=== PATIENT | female | born 1985 | race American Indian/Alaskan Native ===

== ENCOUNTER 2017-12-28 00:58 | Emergency (ER) | payer OTHER ==
[2017-12-28] MEDS ORDERED: FUL-GLO OP ONE (04:47)
[2017-12-28] MEDS ORDERED: TETRACAINE 0.5% OU ONE (04:47)
[2017-12-28] MEDS ORDERED: BSS OU ONE (04:52)
[2017-12-28] MEDS ORDERED: PERCOCET 5/325 PO ONE (05:04)
--- NOTE | 2017-12-28 05:10 | Emergency Department Report ---
ED Eye Problem HPI - General Chief complaint: Eye Problems Stated complaint: RT EYE PAIN Time Seen by Provider: 12/28/17 05:03 Source: patient Mode of arrival: Ambulatory Limitations: No Limitations - History of Present Illness Initial comments: 32-year-old -Mal[place] female wears contacts comes in to the ER complaining of right eye redness with clear drainage and pain. Patient denies anything getting into her eye she denies any eye trauma. Patient admits to photophobia clear drainage. Patient has a past medical history diabetes. She currently takes no medications she has an allergy to penicillin. MD chief complaint: eye pain, eye redness - Related Data Previous Rx's Medication Instructions Recorded Last Taken Type Ibuprofen [Motrin 800 MG tab] 800 mg PO Q8HR PRN #30 tablet 12/28/17 Unknown Rx Levofloxacin [levofloxacin OPTH] 1 - 2 drop OP Q2HWA #1 bottle 12/28/17 Unknown Rx Allergies Allergy/AdvReac Type Severity Reaction Status Date / Time Penicillins Allergy Rash Verified 12/28/17 04:46 ED Review of Systems ROS: Stated complaint: RT EYE PAIN Other details as noted in HPI Eyes: eye pain, eye discharge (clear) ED Past Medical Hx - Past Medical History Previous Medical History?: Yes Hx Diabetes: Yes - Surgical History Past Surgical History?: Yes Additional Surgical History: . breast reduction - Social History Smoking Status: Never Smoker Substance Use Type: Alcohol - Medications Home Medications: Home Medications Medication Instructions Recorded Confirmed Last Taken Type Ibuprofen [Motrin 800 MG tab] 800 mg PO Q8HR PRN #30 tablet 12/28/17 Unknown Rx Levofloxacin [levofloxacin OPTH] 1 - 2 drop OP Q2HWA #1 bottle 12/28/17 Unknown Rx ED Physical Exam - General Limitations: No Limitations General appearance: alert, in no apparent distress - Head Head exam: Present: atraumatic, normocephalic - Eye Eye exam: Present: normal appearance - Expanded Eye Exam Expanded Eyelids: Normal Inspection: Right Pupils: Regular, Round: Bilateral (flourscein uptake approximately 5 PM.) Sclera/Conjunctival: Normal Inspection: Left Anterior chamber: Normal Inspection: Left - ENT ENT exam: Present: mucous membranes moist - Neck Neck exam: Present: normal inspection - Respiratory Respiratory exam: Present: normal lung sounds bilaterally. Absent: respiratory distress - Cardiovascular Cardiovascular Exam: Present: regular rate, normal rhythm. Absent: systolic murmur, diastolic murmur, rubs, gallop - GI/Abdominal GI/Abdominal exam: Present: soft, normal bowel sounds - Extremities Exam Extremities exam: Present: normal inspection - Back Exam Back exam: Present: normal inspection - Neurological Exam Neurological exam: Present: alert, oriented X3 - Psychiatric Psychiatric exam: Present: normal affect, normal mood - Skin Skin exam: Present: warm, dry, intact, normal color. Absent: rash ED Course Vital Signs 12/28/17 12/28/17 12/28/17 01:24 05:01 05:26 Temperature 98.4 F Pulse Rate 72 69 Respiratory 15 18 18 Rate Blood Pressure 129/73 Blood Pressure 127/74 [Left] O2 Sat by Pulse 100 100 Oximetry ED Medical Decision Making - Medical Decision Making Patient's been evaluated by this provider fast track. Discussed the patient will need to do an exam to check for any corneal abrasion. Discussed patient that she does have a small corneal abrasion approximate 5:00. Discussed patient to take medication as prescribed and follow up with an meter changes records clerk in the next 24-48 hours. Patient was given prescription for pain medication as well. Patient verbalized understanding. Critical care attestation.: If time is entered above; I have spent that time in minutes in the direct care of this critically ill patient, excluding procedure time. ED Disposition Clinical Impression: Corneal abrasion, right Qualifiers: Encounter type: initial encounter Qualified Code(s): S05.01XA - Injury of conjunctiva and corneal abrasion without foreign body, right eye, initial encounter Disposition: - TO HOME OR SELFCARE Is pt being admited?: No Does the pt Need Aspirin: No Condition: Stable Instructions: Corneal Abrasion (ED) Additional Instructions: Please see antibiotic eyedrops as prescribed. It is very important for you to follow-up with an meter changes records clerk in the next 24-48 hours. I have listed a few below he can also call the customer service number on the back of your insurance card to inquire about an meter changes records clerk that's in your area. Prescriptions: Levofloxacin [levofloxacin OPTH] 1 - 2 drop OP Q2HWA #1 bottle Ibuprofen [Motrin 800 MG tab] 800 mg PO Q8HR PRN #30 tablet PRN Reason: Pain Referrals: PRIMARY CARE, [Primary Care Provider] - 3-5 Days LO BELLA MD [Staff Physician] - 3-5 Days DENY OQUENDO MD [Staff Physician] - 3-5 Days FAHEEM CISNEROS MD [Staff Physician] - 3-5 Days Forms: Accompanied Note, Work/School Release Form(ED)
[2017-12-28 05:28] VITALS: BP 127/74
== END 2017-12-28 05:28 | disposition home or self-care (01) ==
LOC: ED 00:58
DX: S05.01XA Injury of conjunctiva and corneal abrasion without foreign body, right eye, initial encounter (principal); E11.9 Type 2 diabetes mellitus without complications; Z88.0 Allergy status to penicillin; W22.09XA Striking against other stationary object, initial encounter; Y93.89 Activity, other specified; Y92.89 Other specified places as the place of occurrence of the external cause; Y99.8 Other external cause status